=== PATIENT | male | born 2000 | race Caucasian/White ===

== ENCOUNTER 2025-01-11 10:29 | Emergency (ER) | payer SELFPAY ==
[2025-01-11 10:45] VITALS: BP 157/96; PULSE 70; RESP 18; TEMP 36.9; O2SAT 99; BMI 32.3
[2025-01-11 10:48] VITALS: BP 157/96; PULSE 70
--- NOTE | 2025-01-11 11:08 | ED.ALLEREA ---
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 He feels funny, dry cough, short of breath. 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: allergic reaction and hives Onset (ago): minute(s) (10) Exposure: insect bite Symptoms: rash, itching and difficulty breathing Severity: moderate Treatment prior to arrival: none Previous Allergic Reaction History: anaphylaxis Related Data Previous Rx's ?Medication ?Instructions ?Recorded epinephrine 0.3 mg/0.3 mL 0.3 mg (0.3 mL) IM Q10M PRN 01/11/25 injection, auto-injector anaphylaxis #2 ea prednisone 20 mg tablet 40 mg (2 x 20 mg) PO DAILY 3 days 01/11/25 #6 tabs Allergies Allergy/AdvReac Type Severity Reaction Status Date / Time bee pollen (bee stings) Allergy Severe Anaphylaxis Verified 01/11/25 10:47 Review of Systems Review of Systems: Constitutional : No Fever, No Chills ENT/Mouth : no oral swelling, No Hoarseness, No Swallowing Difficulty Eyes: No Eye Pain, No Swelling, No Redness Cardiovascular : No Chest Pain, pos SOB Respiratory : No Cough, No Sputum, No Wheezing, No Smoke Exposure, No Dyspnea Gastrointestinal : No Nausea, No Vomiting, No Diarrhea, No abdominal Pain Genitourinary : No Dysuria, No Urinary Frequency, No Hematuria Musculoskeletal : No joint pain, No Myalgias, No Joint Swelling Skin : No Skin Lesions, positive rash All other systems reviewed and are negative [facility] Past Medical History Attestation statement: The following information was validated with the patient. Source: old records reviewed Medical History Anaphylaxis Social History Social History (Updated 01/11/25 @ 11:13 by Haritha Cannon DO) Patient Tobacco Use Status: Never used Tobacco Advance Directives: No Advance Directives Information Provided: Yes Physical Exam ED Vital Signs: Vital Signs - 24 hr 01/11/25 10:45 01/11/25 10:48 01/11/25 13:50 Temperature 98.5 F 98 F Pulse Rate 70 70 70 Respiratory Rate 18 16 Blood Pressure 157/96 H 157/96 H 157/96 H Pulse Oximetry 99 98 Oxygen Delivery Method Room Air Room Air BMI result Body Mass Index 32.3 Appearance: Alert. Oriented X3. No acute distress. Eyes: Pupils equal, round and reactive to light. ENT: Pharynx mild bogginess and swelling R soft palate, no stridor, normal voice Neck: Normal inspection. Neck supple. CVS: Normal heart rate and rhythm. Pulses normal. Respiratory: No respiratory distress. Breath sounds normal. Abdomen: Soft and nontender. Skin: Skin warm and dry. Normal skin color. Normal skin turgor. Extremities: No lower extremity edema. hives noted on RUE Neuro: Oriented X 3. No motor deficit. No sensory deficit. Medications Administered Discontinued Medications Generic Name Dose Route Start Last Admin Trade Name Freq PRN Reason Stop Dose Admin Diphenhydramine HCl 25 mg 01/11/25 10:37 01/11/25 10:49 Diphenhydramine Hcl 50 Mg/Ml Vial IVPUSH 01/11/25 10:38 25 mg ONCE ONE Administration Epinephrine 0.3 mg 01/11/25 10:37 01/11/25 10:48 Epinephrine 1 Mg/Ml Vial IM 01/11/25 10:38 0.3 mg STAT STA Administration Famotidine 20 mg 01/11/25 10:37 01/11/25 10:48 Famotidine/Pf 20 Mg/2 Ml Vial IVPUSH 01/11/25 10:38 20 mg ONCE ONE Administration Methylprednisolone Sodium Succinate 125 mg 01/11/25 10:37 01/11/25 10:49 Methylprednisolone Sod Succ 125 Mg/2 Ml Vial IVPUSH 01/11/25 10:38 125 mg ONCE ONE Administration Medical Decision Making Medical Decision Making MDM Narrative: 24 yo male with 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 Will monitor x 2 hours and DC on epi pen if he improves Differential Diagnosis Differential Diagnoses: The differential diagnosis associated with the presentation includes bee sting, anaphylaxis Admission/Observation Consideration of admission/observation: Escalation of care including admission/observation considered improved stable for outpatinet management handed epi pen External Record Review External record reviewed: Outpatient record Prescription Management I considered prescription management with: Other Critical Care Time Critical Care Time Critical Care Time: Yes Total Critical Care Time: 35 Attestation: IM epi for anaphylaxis, observation for repeat symptoms, review of records I attest to this time spent taking care of the patient Discharge Plan Discharge Clinical Impression: Anaphylaxis Patient Disposition: Home, Self-Care Instructions: Anaphylaxis (ED) Additional Instructions: return for any worsening symptoms or concerns take all meds with foods carry epi pen with you at all times take over the counter claritin for the next 5 days Prescriptions: New prednisone 20 mg tablet 40 mg PO DAILY 3 Days Qty: 6 0RF epinephrine 0.3 mg/0.3 mL auto-injector 0.3 mg IM Q10M PRN (Reason: anaphylaxis) Qty: 2 0RF Rx Instructions: for 2 doses Stand Alone Forms: Work/School Release Interventions: ED Discharge Assessment Last Done: 01/11/25 13:50 Discharge Date/Time: 01/11/25 14:09 Print Language: Greenlandic
--- OUTSIDE RECORDS SUMMARY | 2025-01-11 13:04 | XMS_ITS | Clinical Summary ---
Author Organization [facility] Address [address] [facility] [address] [place] [phone] Phone Care Team Providers Care Etl Informatica Developer Name Role Phone Cecilia Montague Prabhjot GIBBONS Primary Care Provider [phone] Allergies No known active allergies Medications dextroamphetami ne-amphetamine (ADDERALL XR) 30 MG 24 hr capsule Take 30 mg by mouth every morning. Active hydrOXYzine (ATARAX) 25 MG tablet Take 2 tablets (50 mg total) by mouth 3 (three) times a day as needed for itching. 20 tablet 5 Active hydrocortisone 2.5 % ointment Apply topically 2 (two) times a day. 20 g 5 Active lidocaine (LMX 4) 4 % cream Apply topically as needed (for pain). 30 g 5 Active Active Problems No known active problems Encounters Date Type Department Care Team Description 12/10/2024 1:23 AM EDT - 12/10/2024 2:35 AM EDT Emergency [facility] [address] [place] [address] Discharge Disposition: Home or Self Care from Last 3 Months Social History Tobacco Use Types Packs/Day Years Used Date Smoking Tobacco: Never Smokeless Tobacco: Never Alcohol Use Standard Drinks/Week Comments Yes 2 (1 standard drink = 0.6 oz pur e alcohol) Education Answer Date Recorded Are you interested in more education? Not on kaylah e 08/21/2022 Are you concerned about learning? Not on file 08/21/2022 No 08/21/2022 No 08/21/2022 Food Answer Date Recorded Within the past 6 months we worried whether our food would run out before we got money to buy more. Never True 12/10/2024 Within the past 6 months the food we bought just didn't last and we didn't have enough money to get more. Never True Residential Stability Answer Date Recor ded What is your housing situation today? I have merle sing 12/10/2024 How many times have you move d in the past 12 months? Zero (I did not move) 12/10/2024 Paying for Meds Answer Date Recorded Do you have trouble paying for medicines? No 12/10/2024 Paying Utility Bills Answer Date Record ed Do you have trouble paying your heating or elect ricity bill? No 12/10/2024 Transportation Answer Date Recorded Has the lack of transportati on kept you from medical appointments or from getting medications? No 12/10/2024 Digital Access Answer Date Recorded No 12/10/2024 Yes 12/10/2024 Do you have reliable internet access at home? Ye s 12/10/2024 Do you have a device (e.g., phone, tablet, computer) with a working camera? Yes 12/10/2024 Intimate Partner Violence Answer Date R ecorded Are you denied basic needs s uch as food, clothing, or medical care? No 12/10/2024 In the past 12 months have y ou been in a relationship with a person who hurts, threatens, or tries to control you? No 12/10/2024 Are you denied basic needs s uch as food, clothing, or medical care? No 12/10/2024 In the past 12 months have y ou been in a relationship with a person who hurts, threatens, or tries to control you? No 12/10/2024 Sex and Gender Information Value Date Recorded Sex Assigned at Male 05/28/2017 7:02 PM EST Legal Sex Male 8:48 PM EDT Gender Identity Male 05/28/2017 7:02 PM EST Sexual Orientation Straight 05/28/2017 7: 02 PM EST Last Filed Vital Signs Vital Sign Reading Time Taken Comments Blood Pressure 131/84 12/10/2024 2:33 AM EDT Pulse 75 12/10/2024 2:33 AM EDT Temperature 36.3 C (97.3 F) 12/10/2024 2:33 AM EDT Respiratory Rate 18 12/10/2024 2:33 AM EDT Oxygen Saturation 97% 12/10/2024 2:33 AM EDT Inhaled Oxygen Concentration - - Weight 108 kg (238 lb 3.2 oz) 12/10/2024 1:18 AM EDT Height 177.8 cm (5' 10 ) 12/10/2024 1:18 AM EDT Body Mass Index 34.18 12/10/2024 1:18 AM EDT Plan of Treatment Health Maintenance Due Date Last Done Comments DEPRESSION SCREENING 2010 HPV VACCINES (3 - Male 3-dose series) 08/01/2015 05/09/2015, 03/19/2014 HEPATITIS C SCREENING 2016 HIV ONE-TIME SCREENING (18-65 YEARS) 2016 Adult Td,Tdap Booster 03/19/2024 03/19/2014 SMOKING STATUS SCREENING (Once After 26 Yrs) 2024 INFLUENZA VACCINE (#1) 2024 05/09/2015, 2013 COVID-19 VACCINE (2 - 2024- season) 2024 10/05/2020 HIB VACCINES Completed 09/10/1999, 11/26, 1998, Additional history exists PNEUMOCOCCAL VACCINES (0-49 years) Aged Out 06/25/2000 No longer eligible based on patient's age to complete this topic MENINGOCOCCAL VACCINES (ACWY) Aged Out 03/19/2014 No longer eligible based on patient's age to complete this topic HEPATITIS A VACCINES Aged Out No long er eligible based on patient's age to complete this topic MENINGOCOCCAL VACCINES (B) Aged Out N o longer eligible based on patient's age to complete this topic Medical Devices Not on file Insurance AIM INSURANCE AIM INSURANCE AIM [employer]URANCE [employer] [address] [id number] Care Teams Etl Informatica Developer Relationship Specialty Start Date End Date Cecilia Montague DO [address] [place] [phone] [email or web address] PCP - General Family Medicine 06/11/23 Additional Source Comments The information contained in this document represents components of the legal health record. It is not the complete legal health record.[facility]
--- OUTSIDE RECORDS SUMMARY | 2025-01-11 13:04 | XMS_ITS | Encounter Summary ---
Author Organization [facility] Address [address] [facility] [address] [place] [phone] Phone Care Team Providers Care Tile Grinder Name Role Phone Cecilia Montague DO Primary Care Provider [phone] Cecilia Montague DO Primary Care Provider [phone]- [phone] Encounter Details Date Type Department Care Team (Latest Contact Info) Description 08/02/2020 Transcribe Orders Virtual Department [address] [place] [address] Cecilia Montague DO [address] [place], [place] [phone] [email or web address] Exposure to SARS-associated coronavirus (Primary Dx) Social History Tobacco Use Types Packs/Day Years Used Date Smoking Tobacco: Never Smokeless Tobacco: Never Alcohol Use Standard Drinks/Week Comments Yes 2 (1 standard drink = 0.6 oz pur e alcohol) Sex and Gender Information Value Date Recorded Sex Assigned at Male 05/28/2017 7:02 PM EST Legal Sex Male 8:48 PM EDT Gender Identity Male 05/28/2017 7:02 PM EST Sexual Orientation Straight 05/28/2017 7: 02 PM EST documented as of this encounter Plan of Treatment Not on file documented as of this encounter Results * COVID-19 PCR Order (08/03/2020 10:16 AM EDT) COVID Testing Status Specimen received in analyzing lab. Results should be available within 24 to 48 hrs. [facility] Symptomatic? NO [facility] 08/03/2020 10:1 6 AM EDT 08/03/2020 12:30 PM EDT Cecilia Montague DO BODY FLUIDS AND STOOLS ORDER QUYEN Final Result Performing Organization Address City/State/[facility] Co de Phone Number [facility] [address] [place] [address] [facility] [address] [place] [phone] documented in this encounter Visit Diagnoses Diagnosis Exposure to SARS-associated coronavirus- Primary documented in this encounter Additional Health Concerns Infection Onset Date Last Indicated Resolved Time CoV-Exposed Comment:Recent close contact documented in the COVID-19 PCR/PRO order 08/02/2020 08/02/2020 08/17/2020 1:23 AM E DT documented as of this encounter Care Teams Tile Grinder Relationship Specialty Start Date End Date Cecilia Montague DO PCP - General Family Medicine 05/21/20 06/10/23 Cecilia Montague DO [address] [place] [phone] PCP - General Family Medicine 06/11/23 documented as of this encounter Additional Source Comments The information contained in this document represents components of the legal health record. It is not the complete legal health record.[facility]
[2025-01-11 13:50] VITALS: BP 157/96; PULSE 70; RESP 16; TEMP 36.6; O2SAT 98
== END 2025-01-11 14:09 | disposition home or self-care (01) ==
PROVIDERS: Emergency Provider Emergency Medicine
DX: L50.0 Allergic urticaria (principal); T63.441A Toxic effect of venom of bees, accidental (unintentional), initial encounter; R06.02 Shortness of breath; Y92.9 Unspecified place or not applicable; R05.9 Cough, unspecified
CPT/HCPCS: 96372; 96374; 96375; 99283; 99284; J0165; J1200; J1308; J2919